=== PATIENT | male | born 1980 | race Caucasian/White ===

== ENCOUNTER 2024-06-18 20:30 | Emergency (ER) | payer SELFPAY ==
[~2024-06-18] VITALS: Ht 167.6 cm; Wt 72.0 kg
[2024-06-18 20:43] VITALS: O2SAT 98
[2024-06-18] MEDS: THIAMINE HCL 100MG TABLET PO ONE (22:32)
[2024-06-18 23:01] LABS: CLARITY URINE CLEAR (CLEAR); COLOR URINE YELLOW (YELLOW); GLUCOSE URINE NEGATIVE (NEGATIVE); KETONES URINE NEGATIVE (NEGATIVE); LEUKOCYTE ESTERASE URINE TRACE (NEGATIVE); NITRITE URINE NEGATIVE (NEGATIVE); OCCULT BLOOD URINE NEGATIVE (NEGATIVE); PROTEIN URINE 1+ (NEGATIVE); SPECIFIC GRAVITY URINE 1.005 (1.005-1.030)
[2024-06-18 23:10] LABS: *AMPHETAMINES SCREEN URINE NEGATIVE (NEGATIVE); *BARBITURATES SCREEN URINE NEGATIVE (NEGATIVE); *BENZODIAZEPINES SCREEN URINE NEGATIVE (NEGATIVE); *COCAINE SCREEN URINE NEGATIVE (NEGATIVE); CANNABINOID URINE SCREEN NEGATIVE (NEGATIVE); ECSTASY MDMA SCREEN URINE NEGATIVE (NEGATIVE); METHADONE URINE SCREEN NEGATIVE (NEGATIVE); OPIATES URINE SCREEN NEGATIVE (NEGATIVE); PHENCYCLIDINE URINE SCREEN NEGATIVE (NEGATIVE)
[2024-06-18 23:16] LABS: BACTERIA URINE 1+
[2024-06-18 23:17] LABS: RBC URINE NONE SEEN /hpf (0-2); SQUAMOUS EPITHELIAL CELL URINE FEW /lpf (RARE/1+); WBC URINE 0-2 /hpf (0-2)
[2024-06-18 23:40] LABS: BASOPHILS % 1.2 % (0.0-2.0); EOSINOPHILS % 2.1 % (0.0-5.0); HEMATOCRIT. 39.1 % (42.0-52.0); LYMPHOCYTES % 28.1 % (20.0-50.0); MEAN CORPUSCULAR HGB CONC 33.3 g/dL (31.0-37.0); MEAN CORPUSCULAR VOLUME 96.1 fL (80.0-94.0); MEAN PLATELET VOLUME 9.2 fl (7.4-10.4); NEUTROPHILS % 55.6 % (40.0-76.0); PLATELET 86 x1000/uL (130-400); RED BLOOD CELL COUNT 4.07 mill/uL (4.7-6.1); RED CELL DISTRIBUTION WIDTH 15.4 % (11.6-14.6); WHITE BLOOD COUNT 4.7 x1000/uL (4.5-11.0)
[2024-06-18 23:41] LABS: CHLORIDE 98 mEq/L (98-107); POTASSIUM 3.4 mEq/L (3.5-5.1); SODIUM 133 mEq/L (136-145)
[2024-06-18 23:42] LABS: CALCIUM 9.5 mg/dL (8.7-10.4); CARBON DIOXIDE 23 mEq/L (21-32)
[2024-06-18 23:47] LABS: CREATININE 0.7 mg/dL (0.6-1.3); GLUCOSE 108 mg/dL (70-105); UREA NITROGEN BLOOD 7 mg/dL (9-23)
[2024-06-18] MEDS ORDERED: KEPP500 MT (23:54)
[2024-06-18] MEDS ORDERED: POTA-204 MT (23:54)
[2024-06-18] MEDS ORDERED: THIA50TA12 MT (23:54)
[2024-06-19] MEDS ORDERED: POTASSIUM CHLORIDE 20MEQ/PACKET PO NR
[2024-06-19 00:27] LABS: ETHANOL BLOOD < 10 mg/dL (<10)
[2024-06-19 00:30] VITALS: BP 143/76; PULSE 73; RESP 19; TEMP 36.66960; O2SAT 99
== END 2024-06-19 00:33 | disposition home or self-care (01) ==
LOC: ER 20:30
DX: R56.9 Unspecified convulsions (principal); F10.20 Alcohol dependence, uncomplicated; E87.6 Hypokalemia; Z79.899 Other long term (current) drug therapy
CPT/HCPCS: 36415; 80048; 80305; 80320; 81003; 82962; 85025; 99283; G0480